=== PATIENT | male | born 1985 | race African-American/Black ===

== ENCOUNTER 2021-07-10 08:40 | Emergency (ER) | payer SELFPAY ==
[~2021-07-10] VITALS: Ht 188 cm; Wt 100.0 kg
[2021-07-10] MEDS ORDERED: ZIPRASIDONE MESYLATE 20MG/VIAL IM ONE (09:30)
[2021-07-10 09:38] LABS: BASOPHILS % 0.7 % (0.0-2.0); EOSINOPHILS % 0.6 % (0.0-5.0); HEMATOCRIT. 40.6 % (42.0-52.0); LYMPHOCYTES % 16.7 % (20.0-50.0); MEAN CORPUSCULAR HEMOGLOBIN 28.3 pg (28.0-32.0); MEAN CORPUSCULAR VOLUME 81.9 fL (80.0-94.0); MEAN PLATELET VOLUME 6.7 fl (7.4-10.4); MONOCYTES % 6.2 % (2.0-8.0); NEUTROPHILS % 75.8 % (40.0-76.0); PLATELET 279 x1000/uL (130-400); RED BLOOD CELL COUNT 4.95 mill/uL (4.7-6.1); RED CELL DISTRIBUTION WIDTH 12.8 % (11.6-14.6)
[2021-07-10 09:44] LABS: CHLORIDE 107 mEq/L (98-107)
[2021-07-10 09:48] LABS: ETHANOL BLOOD < 10 mg/dL
[2021-07-10 14:03] LABS: CLARITY URINE CLEAR (CLEAR); COLOR URINE YELLOW (YELLOW); KETONES URINE 4+ (NEGATIVE); LEUKOCYTE ESTERASE URINE NEGATIVE (NEGATIVE); NITRITE URINE NEGATIVE (NEGATIVE); OCCULT BLOOD URINE NEGATIVE (NEGATIVE); PROTEIN URINE 1+ (NEGATIVE); SPECIFIC GRAVITY URINE 1.036 (1.005-1.030)
[2021-07-10 14:27] LABS: *AMPHETAMINES SCREEN URINE NEGATIVE (NEGATIVE); *BARBITURATES SCREEN URINE NEGATIVE (NEGATIVE)
[2021-07-10 14:28] LABS: *BENZODIAZEPINES SCREEN URINE NEGATIVE (NEGATIVE); *COCAINE SCREEN URINE NEGATIVE (NEGATIVE); CANNABINOID URINE SCREEN NEGATIVE (NEGATIVE); METHADONE URINE SCREEN NEGATIVE (NEGATIVE); OPIATES URINE SCREEN NEGATIVE (NEGATIVE); PHENCYCLIDINE URINE SCREEN NEGATIVE (NEGATIVE)
[2021-07-10] MEDS ORDERED: LORAZEPAM 2MG/ML CPJ IM ONE (19:30)
[2021-07-11] MEDS: RISPERIDONE 1MG TABLET PO SCH ×2 (09:00→21:00)
[2021-07-11] MEDS ORDERED: OLANZAPINE 10 MG/VIAL IM ONE (19:45)
[2021-07-12] MEDS: RISPERIDONE 1MG TABLET PO SCH ×3 (10:48→21:00)
[2021-07-12] MEDS ORDERED: LORAZEPAM 2MG/ML CPJ IM PRN (23:15)
[2021-07-13] MEDS: RISPERIDONE 1MG TABLET PO SCH (09:00)
[2021-07-13 10:02] VITALS: BP 111/78
== END 2021-07-13 15:23 | disposition home or self-care (01) ==
LOC: EDBD 08:40 → ER 08:40
DX: F23 Brief psychotic disorder (principal); R41.82 Altered mental status, unspecified; Z20.822 Contact with and (suspected) exposure to COVID-19
CPT/HCPCS: 36415; 70450; 80053; 80305; 80320; 81003; 85025; 87426; 96372; 99285; J2060; J3486; J3490; Z7610; G0480